=== PATIENT | female | born 1975 | race Caucasian/White ===

== ENCOUNTER → 2018-12-02 | Outpatient (CLI) | payer BC ==
--- NOTE | 2018-12-02 11:23 | US ---
EXAMINATION TYPE: US thyroid st tissue head/neck DATE OF EXAM: 12/02/2018 COMPARISON: NONE CLINICAL HISTORY: 43-year-old female R22.1 Neck swelling. Right neck swelling x 1 year, left thyroide ctomy TECHNIQUE: Multiple sonographic images of the thyroid gland are obtained. FINDINGS: GLAND SIZE: Right Lobe: 5.7 x 1.8 x 2.6 cm Overall Parenchyma: mildly heterogeneous Left Lobe: surgically absent Isthmus Thickness: 0.3 cm NODULES RIGHT: # of nodules measured on right: 0 LEFT: surgically absent ISTHMUS: # of nodules measured in the isthmus: 0 Bilateral neck scanned, right neck submandibular: 4.3 x 1.8 x 2.8cm hypoechoic non vascular structure seen at patient's area of concern. IMPRESSION: 1. Status post left thyroidectomy. No discrete nodule on the right. 2. At the site of patient's clinical concern, there is a 4.3 x 2.8 x 1.8 cm solid hypoechoic structur e in the right submandibular region. An enlarged lymph node or nonspecific salivary gland tumor are a couple differential considerations. Contrast enhanced CT soft tissue of the neck can further evalua te.
--- NOTE | 2018-12-03 10:50 | MM ---
Reason for exam: screening (asymptomatic). Last mammogram was performed 1 year and 1 month ago. Physical Findings: A clinical breast exam by your physician is recommended on an annual basis and results should be correlated with mammographic findings. MG 3D Screening Mammo W/Cad Bilateral CC and MLO view(s) were taken. Prior study comparison: October 26, 2017, mammogram. June 26, 2016, mammogram. The breast tissue is heterogeneously dense. This may lower the sensitivity of mammography. Focal asymmetry bilateral upper outer quadrant. This finding is changed when compared with previous exams. ASSESSMENT: Incomplete: need additional imaging evaluation, BI-RAD 0 RECOMMENDATION: Special view mammogram of both breasts. If lesion persists on supplemental views, image directed ultrasound is recommended. [facility] will attempt to contact patient to return for supplemental views and ultrasound if indicated.
== END | disposition home or self-care (01) ==
LOC: RADMAMWWP 09:27
PROVIDERS: ATTEND Family Medicine
DX: Z12.31 Encounter for screening mammogram for malignant neoplasm of breast (principal); R22.1 Localized swelling, mass and lump, neck; Z90.89 Acquired absence of other organs
CPT/HCPCS: 76536; 77063; 77067

== ENCOUNTER → 2018-12-05 | Outpatient (CLI) | payer BC ==
--- NOTE | 2018-12-06 09:01 | MM ---
Reason for exam: additional evaluation requested from abnormal screening. Last mammogram was performed less than 1 month ago. Physical Findings: Nurse did not find any significant physical abnormalities on exam. MG 3D Work Up W/Cad FRANSICO Bilateral spot compression CC, spot compression MLO, and LM view(s) were taken. Prior study comparison: December 02, 2018, bilateral MG 3d screening mammo w/cad. October 26, 2017, mammogram. The breast tissue is heterogeneously dense. This may lower the sensitivity of mammography. The previously seen abnormality resolves on additional views and appears as fibroglandular tissue compatible with summation on the right breast. Left focal asymmetry improves on additional views in the upper outer quadrant but precautionary ultrasound will be done. These results were verbally communicated with the patient and result sheet given to the patient on 12/05/18. ASSESSMENT: Incomplete: need additional imaging evaluation, BI-RAD 0 RECOMMENDATION: Ultrasound of the left breast. upper outer quadrant
--- NOTE | 2018-12-06 09:01 | USB ---
Reason for exam: additional evaluation requested from abnormal screening. US Breast Workup Limited LT Left limited breast ultrasound including focal area of concern, retroareolar and axilla demonstrates no cystic or solid lesion seen. These results were verbally communicated with the patient and result sheet given to the patient on 12/05/18. ASSESSMENT: Probably benign, BI-RAD 3 RECOMMENDATION: Follow-up diagnostic mammogram of the left breast in 6 months.
== END | disposition home or self-care (01) ==
LOC: RADMAMWWP 13:41
PROVIDERS: ATTEND Family Medicine
DX: R92.8 Other abnormal and inconclusive findings on diagnostic imaging of breast (principal)
CPT/HCPCS: 77062; 77066